=== PATIENT | male | born 1965 | race Caucasian/White ===

== ENCOUNTER 2017-06-10 00:49 | Inpatient (IN) | payer MEDICAID ==
[~2017-06-10] VITALS: Ht 175.3 cm; Wt 119.3 kg
[~2017-06-10 00:49] MED LIST: AMARYL2 MG PO; ATI0.5 PO; ATORVASTATIN CA40 M1 PO; BAY PO; LAC15L PO; METFORMIN HCL1000 MG PO; METOPROLOL TART25 M1 PO; MOTRIN800 MG PO; NEU300 PO; ZES10 PO
--- NOTE | 2017-06-10 02:23 | NUR ---
PT PRESENTS TO ED WITH C/O NON PROVOKED CP SINCE 6 PM LAST NIGHT. PT REPORTS PAIN RADIATES FROM MIDSTERNAL TO RIGHT CHEST AND RIGHT SHOULDER. PT RATES PAIN 7/10 AND PRESSURE/TIGHTNESS IN QUALITY. PT ALSO C/O ABD DISCOMFORT, PT HAD HERNIA REPAIR IN JANUARY AND STATES "I THINK IT'S BACK." PT REPORTS SOME SOB WITH PAIN, LUNG SOUNDS CLEAR TO AUSCULTATION BUT DIMINISHED IN BASES. PT CHANGED INTO GOWN, CONNECTED TO CARDIORESP MONITORS, PLACED ON OXYGEN FOR COMFORT, AWAITING EVAL BY
[2017-06-10 03:06] LABS: PLATELET COUNT 248 x10^3mcL (130-400); RED CELL DISTRIBUTION WIDTH 12.1 % (11.5-14.5)
[2017-06-10 03:13] LABS: CALCIUM 8.7 mg/dL (8.5-10.1); CARBON DIOXIDE 25.7 mmol/L (21-32); CHLORIDE SERUM 102 mmol/L (98-107); CREATININE SERUM 0.9 mg/dL (0.7-1.3); GFR1 > 60 mL/min; GLUCOSE SERUM 321 mg/dL (74-106); POTASSIUM SERUM 4.7 mmol/L (3.5-5.1); SODIUM SERUM 135 mmol/L (136-145)
--- NOTE | 2017-06-10 03:15 | NUR ---
XRAY AT BEDSIDE
[2017-06-10 03:19] LABS: ALKALINE PHOSPHATASE 129 U/L (46-116); ALT/SGPT 37 U/L (16-63); AST/SGOT 12 U/L (15-37); BILIRUBIN TOTAL 0.3 mg/dL (0.20-1.00); TOTAL PROTEIN, SERUM 6.7 g/dL (6.4-8.2)
[2017-06-10 03:20] LABS: ALBUMIN 3.2 g/dL (3.4-5.0)
[2017-06-10 03:29] LABS: BASOPHIL % 4.2 % (0-2)
--- NOTE | 2017-06-10 04:26 | NUR ---
PT SLEEPING IN BED IN A POSITION OF COMFORT. PT CONNECTED TO OXYGEN AND FULL MONITORS, E/U RESP, SNORING IN SLEEP. BED IN LOWEST POSITION, CALL LIGHT WITHIN REACH, NO FURTHER NEEDS AT THIS TIME.
[2017-06-10 04:27] LABS: microscopic required? NO
[2017-06-10 05:08] LABS: FREE T4 1.04 ng/dL (0.76-1.46)
[2017-06-10 05:11] LABS: AMPHETAMINE QUAL UR POSITIVE (NEG <=1000)
[2017-06-10 05:18] LABS: urine erythrocyte NEGATIVE (NEGATIVE)
[2017-06-10] MEDS ORDERED: LISINOPRIL10 MG PO (06:36)
[2017-06-10] MEDS ORDERED: GLIMEPIRIDE4 M1 PO (06:36)
[2017-06-10] MEDS ORDERED: METOPROLOL SUCC25 M2 PO (06:37)
[2017-06-10] MEDS ORDERED: LORAZEPAM0.5 MG PO (06:37)
[2017-06-10] MEDS ORDERED: ATORVASTATIN CA40 M1 PO (06:37)
[2017-06-10] MEDS ORDERED: METFORMIN HCL1000 MG PO (06:38)
--- NOTE | 2017-06-10 07:12 | NUR ---
REPORT GIVEN TO AND CARE ENDORSED TO ANDRÉS CNAAS AND PHILIPPE CANAS.
[2017-06-10 07:23] LABS: MAGNESIUM 2.2 mg/dL (1.8-2.4); PHOSPHOROUS 3.4 mg/dL (2.5-4.9)
[2017-06-10 07:25] LABS: T3 TOTAL 1.19 ng/mL
[2017-06-10 07:34] LABS: FREE T4 1.05 ng/dL (0.76-1.46); FREE THYROXINE INDEX 2.6 ug/dL (1.4-4.5); T4(THYROXINE) 7.4 ug/dL (4.7-13.3)
--- NOTE | 2017-06-10 07:56 | NUR ---
DR. HOOPER HERE TO SEE PT.
--- NOTE | 2017-06-10 08:00 | NUR ---
REPORT CALLED TO [place] ON TELE.
--- NOTE | 2017-06-10 08:30 | NUR ---
RECIEVED PT. FROM ED [facility]IA [place] AWAKE,ALERT AND ORIENTED,DENIES ANY PAIN AT THIS TIME.AMBULATED IN THE BATHROOM AND VOIDING WELL.CALL LIGHT W/ IN REACH. PUR, ON TEL #34 MONITOR SHOWS NSR,ORIENTED TO ROOM AND SURROUNDINGS,ROUTINE ADMISSION CARE RENDERED ,NO ACUTE DISTRESS NOTED. MD AWARE OF PT. ADMISSION SCD APPLIED TO RAINER. LOWER EXTR.
[2017-06-10 09:58] VITALS: BP 125/71
--- NOTE | 2017-06-10 11:00 | NUR ---
PT. KEEP NPO ORDERED LIPASE [id number],PT. DENIES ABD. PAIN AT THIS TIME.CALL LIGHT W/ IN REACH.
[2017-06-10 13:08] VITALS: BP 95/60
[2017-06-10 15:29] LABS: CHOLESTEROL/HDL RATIO 4.5
[2017-06-10 17:10] VITALS: BP 114/68
--- NOTE | 2017-06-10 18:00 | NUR ---
DENIES ANY ABD. PAIN,NO CHEST PAIN SINCE ADMISSION PT. SLEEP MOST OF THE TIME TODAY,AMBULATED IN THE BATHROOM AND VOIDING WELL.CONT. IV FLUIDS ORDERED.
--- NOTE | 2017-06-10 20:00 | NUR ---
RECEIVED PT IN BED, ALERT AND ORIENTED. DENIES HEADACHE/DIZZINESS. RESP. EVEN AND UNLABORED. ON ROOM AIR, NO DISTRESS NOTED. AFEBRILE AND VITAL SIGNS STABLE. SR ON THE MONITOR, DENIES CHEST PAIM OR ANY DISCOMFORT AT THIS TIME. NPO MAINTAINED, NO N/V NOTED. IVF, D5NS AT 150ML/HR, INTACT AND INFUSING VIA LAC, SITE CLEAR. NO COMPLAINTS NOTED AT THIS TIME. VOIDING FREELY. CALL LIGHT WITHIN REACH. WILL CONTINUE TO MONITOR.
[2017-06-10 21:49] VITALS: BP 116/74
--- NOTE | 2017-06-10 23:42 | NUR ---
NO COMPLAINTS NOTED AT THIS TIME. EYES CLOSED, APPEARS ASLEEP, EASILY AROUSABLE. NO DISTRESS NOTED. WILL CONTINUE TO MONITOR.
--- NOTE | 2017-06-11 02:50 | NUR ---
NO COMPLAINTS NOTED. ASLEEP,NO DISTRESS NOTED. WILL CONTINUE TO MONITOR.
[2017-06-11 05:22] VITALS: BP 117/70
[2017-06-11 06:12] LABS: BASOPHIL % 0.2 % (0-2); PLATELET COUNT 207 x10^3mcL (130-400); RED CELL DISTRIBUTION WIDTH 13.3 % (11.5-14.5)
[2017-06-11 06:23] LABS: CALCIUM 8.4 mg/dL (8.5-10.1); CARBON DIOXIDE 28.2 mmol/L (21-32); CHLORIDE SERUM 104 mmol/L (98-107); CREATININE SERUM 0.7 mg/dL (0.7-1.3); GFR1 > 60 mL/min; GLUCOSE SERUM 251 mg/dL (74-106); POTASSIUM SERUM 4.3 mmol/L (3.5-5.1); SODIUM SERUM 138 mmol/L (136-145)
--- NOTE | 2017-06-11 06:27 | NUR ---
AFEBRILE AND VITAL SIGNS STABLE. RESP. EVEN AND UNLABORED. NO DISTRESS NOTED. SLEPT WELL, NO COMPLAINTS NOTED. NPO MAINTAINED. IVF INTACT AND INFUSING WELL, SITE CLEAR. KEPT COMFORTABLE. DENIES PAIN OR ANY DISCOMFORT. WILL ENDORSE TO INCOMING NURSE.
--- NOTE | 2017-06-11 07:45 | NUR ---
AWAKE,ALERT AND ORIENTED DENIES ANY PAIN AT THIS TIME.AMBULATED IN [facility] BATHROOM AND VOIDING WELL. CALL LIGHT W/ IN REACH NPO ORDERED.CONT. IV FLUIDS ORDERED. NO ACUTE DISTRESS NOTED. WILL CONT. PLAN OF CARE.
--- NOTE | 2017-06-11 09:00 | NUR ---
DR. BALLESTEROS HERE W/ OTHER MEDICAL STAFF MADE ROUNDS AND UPDATED PT. PLAN OF CARE.
[2017-06-11 09:20] VITALS: BP 139/71
--- NOTE | 2017-06-11 10:05 | NUR ---
ENCOURAGE PT. TO OOB TO CHAIR AT BEDSIDE AND AMBULATION IN [address] [place]. WELL. DENIES ANY ABD.PAIN,NO N/V NOTED CLEAR LIQUID DIET MA[place]. PO FOR BREAKFAST.
[2017-06-11 12:06] VITALS: BP 109/64
[2017-06-11 17:44] VITALS: BP 132/79
--- NOTE | 2017-06-11 18:00 | NUR ---
DENIES ABD. PAIN THE WHOLE DAY DIET SOFT CCHO [place]. WELL.DENIES N/V.CALL LIGHT W/ IN REACH AMBULATED IN THE BATHROOM AND VOIDING WELL.
--- NOTE | 2017-06-11 20:00 | NUR ---
RECEIVED PT IN BED,RESTING QUIETLY. ALERT AND ORIENTED. RESP. EVEN AND UNLABORED, ON ROOM AIR, NO DISTRESS NOTED. AFEBRILE AND VITAL SIGNS STABLE. SR ON THE MONITOR. DENIES CHEST PAIN OR PRESSURE. ABD. SOFT, NON TENDER, BS ACTIVE, NO N/V NOTED. IVF, NS AT 100ML/HR, INTACT AND INFUSING VIA LAC, SITE CLEAR.VOIDING FREELY. ASSISTED WITH HS CARE. CALL LIGHT WITHIN REACH. WILL CONTINUE TO MONITOR.
[2017-06-11 22:07] VITALS: BP 112/68
--- NOTE | 2017-06-12 03:12 | NUR ---
NO COMPLAINTS NOTED. ASLEEP AT THIS TIME, EASILY AROUSABLE. NO DISTRESS NOTED. WILL CONTINUE TO MONITOR.
[2017-06-12 05:33] VITALS: BP 111/73
[2017-06-12 06:10] LABS: BASOPHIL % 0.4 % (0-2); PLATELET COUNT 216 x10^3mcL (130-400); RED CELL DISTRIBUTION WIDTH 12.9 % (11.5-14.5)
[2017-06-12 06:14] LABS: CALCIUM 8.4 mg/dL (8.5-10.1); CARBON DIOXIDE 30.7 mmol/L (21-32); CHLORIDE SERUM 103 mmol/L (98-107); CREATININE SERUM 0.8 mg/dL (0.7-1.3); GFR1 > 60 mL/min; GLUCOSE SERUM 183 mg/dL (74-106); POTASSIUM SERUM 4.1 mmol/L (3.5-5.1); SODIUM SERUM 136 mmol/L (136-145)
--- NOTE | 2017-06-12 06:36 | NUR ---
AFEBRILE AND VITAL SIGNS STABLE. RESP. EVEN AND UNLABORED. NO DISTRESS NOTED. DENIES PAIN OR ANY DISCOMFORT. NO SIGNIFICANT CHANGES NOTED IN PT,S CONDITION. IVF INTACT AND INFUSING WELL, SITE CLEAR. SLEPT WELL. WILL ENDORSE TO INCOMING NURSE.
--- NOTE | 2017-06-12 07:40 | NUR ---
RECEIVED PT IN BED A/A/OX4 DENIES [place]. RESP EVEN AND UNLABORED WITH CLEAR BS BILAT. DENIES ANY SOB/CP/PRESSURE. NO EDEMA NOTED, IVF TO LAC. ABD SOFT, OBESE, NONTENDER WITH ACTIVE BS X4. DENIES ANY N/V AT THIS TIME. VOIDING FREELY. AMBULATORY. CALL LIGHT IN REACH NEEDS ATTENDED TO.
--- NOTE | 2017-06-12 09:10 | NUR ---
PT C/O IV TO LAC LEAKING. IV D/C'D PT WITH PLANNED D/C HOME TODAY. NO NEW IV INSERTED AT THIS TIME PER PT'S REQUEST.
[2017-06-12 09:38] VITALS: BP 110/60
[2017-06-12] MEDS ORDERED: NEU300 PO (10:39)
[2017-06-12 12:53] VITALS: BP 110/60
[2017-06-12 13:01] VITALS: BP 115/70
--- NOTE | 2017-06-12 13:40 | NUR ---
PT PROVIDED WITH D/C HOME INSTRUCTIONS. GIVEN MEDICATION/PRESCRIPTION EDUCATION. PROVIDED WITH WRITTEN DM EDUCATION. MADE AWARE OF F/U APPT WITH PCP. PT VERBALIZED UNDERSTANDING OF INSTRUCTIONS. TELE D/C'D AT THIS TIME. PT TAKEN TO LOBBY VIA WC WITH ALL PERSONAL BELONGINGS IN HAND FREE OF ANY APPARENT DISTRESS.
== END 2017-06-12 13:44 | disposition home or self-care (01) | DRG 282 ==
LOC: ED 00:49 → DU 06:22
PROVIDERS: Emergency Medicine; ADMIT Family Medicine Sports Medicine
DX: K85.90 Acute pancreatitis without necrosis or infection, unspecified (principal); E44.0 Moderate protein-calorie malnutrition; E11.65 Type 2 diabetes mellitus with hyperglycemia; E87.1 Hypo-osmolality and hyponatremia; I10 Essential (primary) hypertension; K21.9 Gastro-esophageal reflux disease without esophagitis; E78.1 Pure hyperglyceridemia; F15.10 Other stimulant abuse, uncomplicated; Z79.84 Long term (current) use of oral hypoglycemic drugs; Z68.38 Body mass index [BMI] 38.0-38.9, adult
CPT/HCPCS: 82962; 83880; 84439; 90658; G0480; J7030; J7042; Q0092

== ENCOUNTER 2017-07-24 18:48 | Emergency (ER) | payer MEDICAID ==
[~2017-07-24] VITALS: Ht 175.3 cm; Wt 110.7 kg
[~2017-07-24 18:48] MED LIST changes: +GLIMEPIRIDE4 M1 PO; +LISINOPRIL10 MG PO; +LORAZEPAM0.5 MG PO; +METOPROLOL SUCC25 M2 PO
[2017-07-24 19:06] VITALS: Ht 175.3 cm; Wt 110.7 kg
[2017-07-24 20:19] VITALS: BP 146/82
== END 2017-07-24 20:19 | disposition home or self-care (01) ==
LOC: ED 18:48
DX: S39.011A Strain of muscle, fascia and tendon of abdomen, initial encounter (principal); R05 Cough; I10 Essential (primary) hypertension; E11.9 Type 2 diabetes mellitus without complications; X58.XXXA Exposure to other specified factors, initial encounter; Y93.89 Activity, other specified; Y99.8 Other external cause status; Y92.89 Other specified places as the place of occurrence of the external cause
CPT/HCPCS: J1885

== ENCOUNTER 2017-11-01 09:11 | Emergency (ER) | payer MEDICAID ==
[~2017-11-01] VITALS: Ht 175.3 cm; Wt 117.0 kg
[2017-11-01 11:01] LABS: BASOPHIL % 0.1 % (0-2); PLATELET COUNT 214 x10^3mcL (130-400); RED CELL DISTRIBUTION WIDTH 13.5 % (11.5-14.5)
[2017-11-01 11:07] LABS: CALCIUM 9.5 mg/dL (8.5-10.1); CARBON DIOXIDE 26.9 mmol/L (21-32); CHLORIDE SERUM 98 mmol/L (98-107); CREATININE SERUM 1.1 mg/dL (0.7-1.3); GFR1 > 60 mL/min; GLUCOSE SERUM 372 mg/dL (74-106); POTASSIUM SERUM 4.1 mmol/L (3.5-5.1); SODIUM SERUM 134 mmol/L (136-145)
[2017-11-01 11:13] LABS: ALKALINE PHOSPHATASE 123 U/L (46-116); ALT/SGPT 41 U/L (16-63); AST/SGOT 12 U/L (15-37); BILIRUBIN TOTAL 0.5 mg/dL (0.20-1.00); TOTAL PROTEIN, SERUM 7.4 g/dL (6.4-8.2)
[2017-11-01 12:10] VITALS: BP 140/80
== END 2017-11-01 12:10 | disposition home or self-care (01) ==
LOC: ED 09:11
PROVIDERS: Emergency Medicine
DX: S46.911A Strain of unspecified muscle, fascia and tendon at shoulder and upper arm level, right arm, initial encounter (principal); S80.01XA Contusion of right knee, initial encounter; E11.65 Type 2 diabetes mellitus with hyperglycemia; I10 Essential (primary) hypertension; W18.39XA Other fall on same level, initial encounter; Y93.89 Activity, other specified; Y99.8 Other external cause status; Y92.89 Other specified places as the place of occurrence of the external cause
CPT/HCPCS: 82962; J1815; J7030

== ENCOUNTER 2018-09-19 21:58 | Emergency (ER) | payer MEDICAID ==
[~2018-09-19] VITALS: Ht 175.3 cm; Wt 113.1 kg
[2018-09-19 22:08] VITALS: Ht 175.3 cm; Wt 113.1 kg
[2018-09-19 23:58] VITALS: BP 141/70
== END 2018-09-19 23:58 | disposition home or self-care (01) ==
LOC: ED 21:58
DX: M54.32 Sciatica, left side (principal); I10 Essential (primary) hypertension; E11.9 Type 2 diabetes mellitus without complications; F41.9 Anxiety disorder, unspecified; Z98.890 Other specified postprocedural states
CPT/HCPCS: J3010; J3490